=== PATIENT | male | born 1960 | race Caucasian/White ===

== ENCOUNTER 2019-04-01 10:37 | Outpatient (CLI) | payer OTHER ==
--- NOTE | 2019-04-01 19:40 | Diagnostic Imaging Report ---
STELLA MEHTA [facility] [id number] [facility] [address] [place] [address]. [id number] Report Submission Date: Apr 01, 2019 11:36:00 AM CDT Patient Study Name: GALINDO CORTES Date: Apr 01, 2019 10:44:44 AM CDT Modality Type: DX Gender: M Description: KNEE 3 VIEWS : 64 Institution: [facility] Physician: STELLA MEHTA Exam: Right knee. History: Pain for 2 months. AP, lateral and sunrise view of the right knee are submitted. No signs of acute fracture or dislocation is seen. Mild medial compartment spurring is noted. Anterior joint effusion is identified in the lateral projection. Impression: Joint effusion. Mild degenerative changes. MRI is recommended to further evaluate. Electronically signed on Apr 01, 2019 11:36:00 AM CDT by: Ritesh WILLIAMSON
== END 2019-04-01 10:40 ==
LOC: RAD 10:37
PROVIDERS: ATTEND Family Medicine
DX: M25.561 Pain in right knee (principal)
CPT/HCPCS: 73562